=== PATIENT | female | born 1985 | race Caucasian/White ===

== ENCOUNTER 2018-07-02 22:18 | Emergency (ER) | payer MEDICARE ==
[~2018-07-02] VITALS: Ht 165.1 cm; Wt 80.9 kg
[~2018-07-02 22:18] MED LIST: ABILIFY10 MG PO; MOTRIN600 MG PO; NORCO 10/325 TA1 TA1 PO; OXYCONTIN20 MG PO; PERCOCET 5/3251 TA1 PO; PRENATAL-DHA P1 EACH PO; TYLENOL 325 MG325 MG PO; VALIUM10 MG PO; ZITHROMAX250 MG PO
[2018-07-02 22:25] VITALS: Ht 165.1 cm; Wt 80.9 kg
[2018-07-02 23:05] LABS: HCG URINE NEGATIVE (NEGATIVE)
[2018-07-02] MEDS ORDERED: ACETAMINOPHEN500 M1 PO (23:47)
[2018-07-02] MEDS ORDERED: CYCLOBENZAPRINE10 MG PO (23:47)
[2018-07-02] MEDS ORDERED: IBUPROFEN800 MG PO (23:47)
[2018-07-02 23:56] VITALS: BP 137/84
== END 2018-07-02 23:56 | disposition home or self-care (01) ==
LOC: D.ER 22:18
PROVIDERS: Family Medicine
DX: M79.1 Myalgia (principal); S00.93XA Contusion of unspecified part of head, initial encounter; W20.8XXA Other cause of strike by thrown, projected or falling object, initial encounter; Y93.89 Activity, other specified; Y92.89 Other specified places as the place of occurrence of the external cause; M54.2 Cervicalgia

== ENCOUNTER 2019-07-11 06:00 | Day surgery (SDC) | payer MEDICARE ==
[~2019-07-11] VITALS: Ht 165.1 cm; Wt 91.6 kg
[~2019-07-11 06:00] MED LIST changes: +ACETAMINOPHEN500 M1 PO; +CYCLOBENZAPRINE10 MG PO; +IBUPROFEN800 MG PO
[2019-07-11 06:19] LABS: BASOPHILS 0 % (0-2); EOSINOPHILS 1.3 % (0-7); HEMATOCRIT 40.9 % (36.0-48.0); IMMATURE GRANULOCYTES 0.1 % (0-5); LYMPHOCYTES 26.8 % (15-50); MCH 31.7 pg (26.0-34.0); MCHC 34.2 g/dL (31.0-37.0); MCV 92.5 fL (80.0-100.0); MEAN PLATELET VOLUME 9.3 fL (7.4-10.4); MONOCYTES 4.7 % (2-11); NEUTROPHILS 67.1 % (40-80); PLATELET COUNT 200 10x3/uL (130-400); RBC 4.42 10x6/uL (4.00-5.40); WBC 8.8 10x3/uL (4.8-10.8)
[2019-07-11 06:47] LABS: CALC OSMOLALITY 279 mosm/kg (275-300); CALCIUM 8.3 mg/dL (8.5-10.1); CARBON DIOXIDE 29.6 mmol/L (21.0-32.0); CHLORIDE - SERUM 105 mmol/L (98-107); CREATININE - SERUM 0.7 mg/dL (0.6-1.3); GLUCOSE 99 mg/dL (74-106); SODIUM 141 mmol/L (136-145); UREA NITROGEN 11 mg/dL (7-18); eGFR NON AFRICAN AMERICAN > 90 mL/min (90-120)
[2019-07-11 07:21] LABS: HCG SERUM NEGATIVE (NEGATIVE)
[2019-07-11 07:34] VITALS: BP 111/65; Ht 165.1 cm; Wt 91.6 kg
[2019-07-11] MEDS ORDERED: HYDROCODON-ACE1 EAC7 PO (09:29)
--- NOTE | 2019-07-11 14:14 | NUR ---
1110 IV DC'D. CATHETER TIP INTACT. NO BLEEDING AT SITE. BANDAID APPLIED.
--- NOTE | 2019-07-29 10:07 | OP ---
PATIENT NAME: COLEEN GUERRA MEDICAL RECORD: [id number] :89 LOCATION:[facility] ADMISSION DATE: SURGEON: SALVADOR UGARTE MD DATE OF OPERATION: 07/11/2019 PREOPERATIVE DIAGNOSES: 1. Left upper thigh cyst. 2. Tobacco dependence syndrome. POSTOPERATIVE DIAGNOSES: 1. Left upper thigh cyst. 2. Tobacco dependence syndrome. PROCEDURE: Excision of 1.5-cm left upper thigh cyst. SURGEON: Salvador Ugarte MD REPORT OF PROCEDURE: The patient's left upper thigh and groin region were prepped and draped in sterile fashion. An ovoid incision about 3 cm in length and about 1 cm wide was made overlying the area of cyst. Electrocautery was used to dissect through the subcutaneous tissues. We never penetrated through the muscle or fascia. The tissue was then sent off for permanent specimen. We treated the area with electrocautery to stop any bleeding and then irrigated out the wound with normal saline. The subcutaneous tissues were reapproximated with interrupted 4-0 Vicryl, and the skin was closed with running subcutaneous 5-0 Monocryl. A total of 10 mL of 0.25% Marcaine with epinephrine was infused into the surrounding tissues, and the wound was dressed appropriately. COMPLICATIONS: None. CONDITION: Stable. ANESTHESIA: General endotracheal and local. BLOOD LOSS: Minimal. 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
== END 2019-07-11 11:18 | disposition home or self-care (01) ==
LOC: D.OPS 06:00 → D.PAN 08:30 → D.OPS 11:18
PROVIDERS: Anesthesiology; ATTEND Surgery
DX: L72.3 Sebaceous cyst (principal); Z01.812 Encounter for preprocedural laboratory examination

== ENCOUNTER 2020-06-28 18:41 | Emergency (ER) | payer MEDICARE ==
[~2020-06-28] VITALS: Ht 165.1 cm; Wt 90.9 kg
[~2020-06-28 18:41] MED LIST changes: +HYDROCODON-ACE1 EAC7 PO; +OMNICEF300 MG PO
[2020-06-28 18:55] VITALS: Ht 165.1 cm; Wt 90.9 kg
[2020-06-28] MEDS ORDERED: CLEOCIN HCL300 MG PO (19:53)
[2020-06-28] MEDS ORDERED: DIFLUCAN150 MG PO (19:53)
[2020-06-28 20:06] VITALS: BP 112/64
== END 2020-06-28 20:07 | disposition home or self-care (01) ==
LOC: D.ER 18:41
DX: L03.115 Cellulitis of right lower limb (principal)